=== PATIENT | female | born 1990 | race Caucasian/White ===

== ENCOUNTER 2017-03-20 13:45 | Emergency (ER) | payer OTHER ==
[2017-03-20 13:51] VITALS: TEMP 98.3; BMI 31.4
--- NOTE | 2017-03-20 14:19 | PDOC ---
History of Present Illness - General Chief Complaint: Vaginal Bleeding Stated Complaint: VAGINAL BLEEDING Time Seen by Provider: 03/20/17 14:02 History Source: Patient Exam Limitations: No Limitations - History of Present Illness Travel History: No Initial Comments: 03/20/17 15:09 27-year-old female presents the ED with noted rectal bleeding upon defecation prior to arrival. Patient states was exerting herself when she wiped and noticed a small blood clot but denies any vaginal discharge, vaginal bleeding, abdominal pain, nausea, or dizziness. Patient states also recently found out she was where she is seen by woman to woman. Patient has no other complaints at this time and denies history of hemorrhoids, anal fissures, or GI disorders. Timing/Duration: reports: resolved prior to arrival Quality: reports: mild Abdominal Pain Onset Location: reports: other Activities at Onset: reports: exertion Aggravating Factors: improves with: Defecation Past History - Past Medical History Allergies/Adverse Reactions: Allergies Allergy/AdvReac Type Severity Reaction Status Date / Time No Known Allergies Allergy Verified 03/20/17 13:50 Home Medications: Ambulatory Orders NK [No Known Home Medication] 03/20/17 Asthma: No Cancer: No Cardiac Disorders: No Diabetes: No HTN: No Seizures: No Thyroid Disease: No - Reproductive History (#): 6 Para: 2 Cervical CA: No Dysfunctional Uterine Bleeding: No Ectopic : No Endometrial CA: No Polycystic Ovaries: No Therapeutic (s) & number: Yes (4) Tubal Ligation: No Spontaneous : 0 - Psycho/Social/Smoking Cessation Hx Anxiety: No Suicidal Ideation: No Smoking Status: No Smoking History: Never smoked Have you smoked in the past 12 months: No Number of Cigarettes Smoked Daily: 0 Hx Alcohol Use: No Drug/Substance Use Hx: No Substance Use Type: None Hx Substance Use Treatment: No Patient Lives Alone: No Lives with/in: spouse/SO Review of Systems - Review of Systems Able to Perform ROS?: Yes Constitutional: No: Symptoms Reported HEENTM: No: Symptoms Reported Cardiac (ROS): No: Symptoms Reported ABD/GI: Yes: Rectal Bleeding : No: Symptoms Reported Musculoskeletal: No: Symptoms Reported Integumentary: No: Symptoms Reported Neurological: No: Symptoms reported Hematologic/Lymphatic: No: Symptoms Reported *Physical Exam - Vital Signs Last Vital Signs Temp Pulse Resp BP Pulse Ox 98.3 F 96 H 20 133/65 99 03/20/17 13:46 03/20/17 13:46 03/20/17 13:46 03/20/17 13:46 03/20/17 13:46 - Physical Exam General Appearance: Yes: Nourished, Appropriately Dressed. No: Apparent Distress Neck: positive: Supple Respiratory/Chest: positive: Lungs Clear, Normal Breath Sounds. negative: Respiratory Distress, Accessory Muscle Use Cardiovascular: positive: Regular Rhythm, Regular Rate. negative: Murmur Female Pelvic Exam: positive: normal external exam, cervical os closed. negative: CMT, discharge, vaginal bleeding Gastrointestinal/Abdominal: positive: Soft. negative: Tenderness Rectal Exam: positive: normal rectal tone, other (brown stool on exam ). negative: hemorrhoids Musculoskeletal: negative: CVA Tenderness Extremity: positive: Normal Capillary Refill Integumentary: positive: Normal Color, Warm, Moist Neurologic: positive: Motor Strength 5/5 (ambulatory) ED Treatment Course - LABORATORY CBC & Chemistry Diagram: 03/20/17 15:00 Medical Decision Making - Medical Decision Making 03/20/17 15:11 Patient here with complaints of one episode of rectal bleeding which she describes a small bright red blood clot. Patient denies any vaginal bleeding. Patient exam had no abnormal findings. Patient ordered for urinalysis, hCG, stool for guaiac testing and if positive will order a CBC including a beta hCG. 03/20/17 16:10 Laboratory Tests 03/20/17 03/20/17 03/20/17 14:07 14:27 15:00 WBC 10.4 H Hgb 12.7 Hct 37.8 Plt Count 260 Beta HCG, Quant Urine Ketones Negative Urine Blood Negative Urine HCG, Qual Positive Stool Occult Blood Positive 03/20/17 15:00 WBC Hgb Hct Plt Count Beta HCG, Quant 30024.5 Urine Ketones Urine Blood Urine HCG, Qual Stool Occult Blood 03/20/17 16:11 *DC/Admit/Observation/Transfer Diagnosis at time of Disposition: Rectal bleed - Discharge Dispostion Disposition: HOME Condition at time of disposition: Good - Patient Instructions Printed Discharge Instructions: DI for Rectal Bleeding Additional Instructions: I have checked your blood work and there is no sign of anemia or concerning immediate workup. Please try to add fiber to diet and avoid pushing. If symptoms return please come to the ER otherwise follow-up with your PMD
[2017-03-20 14:40] LABS: URINE APPEARANCE CLEAR; URINE BILIRUBIN NEGATIVE (NEGATIVE); URINE BLOOD NEGATIVE (NEGATIVE); URINE COLOR DKYELLOW; URINE GLUCOSE (UA) NEGATIVE (NEGATIVE); URINE KETONE NEGATIVE (NEGATIVE); URINE LEUK ESTERASE NEGATIVE (NEGATIVE); URINE NITRITE NEGATIVE (NEGATIVE); URINE PROTEIN NEGATIVE (NEGATIVE); URINE UROBILINOGEN NEGATIVE E.U./dl (0.2-1.0)
[2017-03-20 15:12] LABS: MCH 30.7 pg (25.7-33.7); MCHC 33.6 g/dl (32.0-36.0); MEAN CELL VOLUME 91.5 fl (80-96); MEAN PLT VOLUME 7.7 fl (7.5-11.1); PLATELET COUNT 260 K/MM3 (134-434); RDW 13.1 % (11.6-15.6); WHITE BLOOD COUNT 10.4 K/mm3 (4.0-10.0)
[2017-03-20 16:19] VITALS: BP 128/65; PULSE 82
== END 2017-03-20 16:20 | disposition home or self-care (01) ==
LOC: JER 13:45
DX: O26.891 Other specified pregnancy related conditions, first trimester (principal); K62.5 Hemorrhage of anus and rectum; Z3A.00 Weeks of gestation of pregnancy not specified
CPT/HCPCS: 36415; 81003; 82272; 84702; 84703; 85027; 99283-25

== ENCOUNTER 2018-10-24 11:19 | Emergency (ER) | payer SELFPAY ==
[2018-10-24 11:40] VITALS: BP 131/78; PULSE 82; TEMP 98; BMI 32.1
--- NOTE | 2018-10-24 13:23 | PDOC ---
History of Present Illness - General Chief Complaint: Rash Stated Complaint: RASH Time Seen by Provider: 10/24/18 13:09 - History of Present Illness Initial Comments: 10/24/18 13:22 28-year-old female without comorbidities presents for evaluation requesting head check and scalp check after her daughter was diagnosed with lice Past History - Past Medical History Allergies/Adverse Reactions: Allergies Allergy/AdvReac Type Severity Reaction Status Date / Time No Known Allergies Allergy Verified 10/07/17 12:34 Home Medications: Ambulatory Orders NK [No Known Home Medication] 03/20/17 Asthma: No Cancer: No Cardiac Disorders: No COPD: No Diabetes: No HTN: No Seizures: No Thyroid Disease: No - Reproductive History (#): 6 Para: 2 Cervical CA: No Dysfunctional Uterine Bleeding: No Ectopic : No Endometrial CA: No Polycystic Ovaries: No Therapeutic (s) & number: Yes (4) Tubal Ligation: No Spontaneous : 0 - Immunization History Immunization Up to Date: No - Suicide/Smoking/Psychosocial Hx Smoking Status: No Smoking History: Never smoked Have you smoked in the past 12 months: No Number of Cigarettes Smoked Daily: 0 Information on smoking cessation initiated: No Hx Alcohol Use: No Drug/Substance Use Hx: No Substance Use Type: Alcohol Hx Substance Use Treatment: No Review of Systems - Review of Systems Constitutional: Yes: See HPI *Physical Exam - Vital Signs Last Vital Signs Temp Pulse Resp BP Pulse Ox 98.0 F 82 20 131/78 100 10/24/18 11:37 10/24/18 11:37 10/24/18 11:37 10/24/18 11:37 10/24/18 11:37 - Physical Exam Comments: 10/24/18 13:22 Her scalp was inspected thoroughly there is no evidence of lice or larvae no evidence of infection Moderate Sedation - Procedure Monitoring Vital Signs: Procedure Monitoring Vital Signs Temperature 98.0 F 10/24/18 11:37 Pulse Rate 82 10/24/18 11:37 Respiratory Rate 20 10/24/18 11:37 Blood Pressure 131/78 10/24/18 11:37 O2 Sat by Pulse Oximetry (%) 100 10/24/18 11:37 *DC/Admit/Observation/Transfer Diagnosis at time of Disposition: Exposure to head lice - Discharge Dispostion Disposition: HOME Condition at time of disposition: Stable Decision to Admit order: No - Referrals Referrals: Lydia Batres [Primary Care Provider] - - Patient Instructions Printed Discharge Instructions: Head Lice Additional Instructions: Return to the emergency room should he develop any symptoms otherwise follow-up with your primary care physician in one to 2 days for further evaluation and treatment options. - Post Discharge Activity
== END 2018-10-24 13:35 | disposition home or self-care (01) ==
LOC: JERFT 11:19
DX: Z20.7 Contact with and (suspected) exposure to pediculosis, acariasis and other infestations (principal)
CPT/HCPCS: 99281-25

== ENCOUNTER 2018-11-17 10:47 | Emergency (ER) | payer SELFPAY ==
[2018-11-17 11:10] VITALS: BP 142/74; PULSE 84; TEMP 98.7; BMI 32.1
--- NOTE | 2018-11-17 11:17 | PDOC ---
History of Present Illness - General Chief Complaint: Pain Stated Complaint: EAR PROBLEM Time Seen by Provider: 11/17/18 11:15 History Source: Patient - History of Present Illness Initial Comments: 11/17/18 11:37 28 year old female with right side neck pain and swelling with throat pain x 10 days. denies fever chills and pain to right lower wisdom tooth with dental caries. denies URI symptoms, NVD, abdominal pain, Past History - Past Medical History Allergies/Adverse Reactions: Allergies Allergy/AdvReac Type Severity Reaction Status Date / Time No Known Allergies Allergy Verified 11/17/18 11:04 Home Medications: Ambulatory Orders Amox-Tr/K Cl [Augmentin - 875Mg Tablet] 1 tab PO BID #20 tablet 11/17/18 Asthma: No Cancer: No Cardiac Disorders: No COPD: No Diabetes: No HTN: No Seizures: No Thyroid Disease: No Other medical history: DENIES - Reproductive History (#): 6 Para: 2 Cervical CA: No Dysfunctional Uterine Bleeding: No Ectopic : No Endometrial CA: No Polycystic Ovaries: No Therapeutic (s) & number: Yes (4) Tubal Ligation: No Spontaneous : 0 - Immunization History Immunization Up to Date: No - Suicide/Smoking/Psychosocial Hx Smoking Status: No Smoking History: Current some day smoker Have you smoked in the past 12 months: Yes Number of Cigarettes Smoked Daily: 0 Information on smoking cessation initiated: No Hx Alcohol Use: No Drug/Substance Use Hx: No Substance Use Type: Alcohol Hx Substance Use Treatment: No Review of Systems - Review of Systems Able to Perform ROS?: Yes Is the patient limited Azeri proficient: No HEENTM: Yes: Throat Pain, Dental Problems *Physical Exam - Vital Signs Last Vital Signs Temp Pulse Resp BP Pulse Ox 98.7 F 84 19 142/74 99 11/17/18 11:04 11/17/18 11:04 11/17/18 11:04 11/17/18 11:04 11/17/18 11:04 - Physical Exam General Appearance: Yes: Appropriately Dressed HEENT: positive: TMs Normal, Pharyngeal Erythema, Other (has right lower wisdom tooth impacted with dental caries.). negative: Rhinorrhea, Sinus Tenderness Neck: positive: Trachea midline, Normal Thyroid, Lymphadenopathy (R), Lymphadenopathy (L) Respiratory/Chest: positive: Lungs Clear, Normal Breath Sounds Cardiovascular: positive: Regular Rate Gastrointestinal/Abdominal: positive: Normal Bowel Sounds, Soft Moderate Sedation - Procedure Monitoring Vital Signs: Procedure Monitoring Vital Signs Temperature 98.7 F 11/17/18 11:04 Pulse Rate 84 11/17/18 11:04 Respiratory Rate 11/17/18 11:04 Blood Pressure 142/74 11/17/18 11:04 O2 Sat by Pulse Oximetry (%) 99 11/17/18 11:04 *DC/Admit/Observation/Transfer Diagnosis at time of Disposition: Cervical lymphadenopathy, Infected dental caries - Discharge Dispostion Disposition: HOME Condition at time of disposition: Stable - Prescriptions Prescriptions: Amox-Tr/K Cl [Augmentin - 875Mg Tablet] 1 tab PO BID #20 tablet - Referrals Referrals: Lydia Batres [Primary Care Provider] - Call tomorrow - Patient Instructions Printed Discharge Instructions: DI for Tooth Decay Additional Instructions: please follow up with a dentist as soon as possible take augmentin as prescribed. return to the ER fi symptoms worsen - Post Discharge Activity Forms/Work/School Notes: Back to Work
[2018-11-17] MEDS ORDERED: AMOX TR/POT CLAV 875MG/125MG TABLETS (FP) PO ONE (12:49)
== END 2018-11-17 12:36 | disposition home or self-care (01) ==
LOC: JERFT 10:47
DX: R59.0 Localized enlarged lymph nodes (principal); K02.9 Dental caries, unspecified
CPT/HCPCS: 87070; 87880; 99281-25

== ENCOUNTER 2021-11-22 21:53 | Emergency (ER) | payer OTHER ==
[2021-11-22 22:00] VITALS: BP 128/84; TEMP 98; BMI 34.7
[2021-11-22] MEDS ORDERED: LIDOCAINE PATCH REMOVAL MC SCH (22:00)
[2021-11-22] MEDS ORDERED: ACETAMINOPHEN 500 MG TABLET (FP) PO ONE (23:39)
[2021-11-22] MEDS ORDERED: LIDOCAINE 5% TOPICAL PATCH TP ONE (23:40)
[2021-11-23] MEDS ORDERED: LIDOCAINE 5% TOPICAL PATCH ONE (00:22)
[2021-11-23] MEDS ORDERED: ACETAMINOPHEN 325 MG TABLET (FP) ONE (00:22)
[2021-11-23] MEDS ORDERED: ACETAMINOPHEN 325 MG TABLET (FP) PO ONE (00:34)
[2021-11-23 02:07] VITALS: PULSE 98
== END 2021-11-23 02:06 | disposition home or self-care (01) ==
LOC: JERFT 21:53 → JER 21:53
DX: R51.9 Headache, unspecified (principal)
CPT/HCPCS: 70450-TC; 93005; 93010; 99284-25